=== PATIENT | male | born 2000 | race Caucasian/White ===

== ENCOUNTER 2020-08-12 11:26 | Emergency (ER) | payer OTHER ==
[~2020-08-12] VITALS: Ht 172.7 cm; Wt 87.1 kg
[2020-08-12 11:30] VITALS: BP 134/74
[2020-08-12] MEDS ORDERED: IBUPROFEN 600 MG TAB PO ONE (11:35)
[2020-08-12] MEDS ORDERED: LIDOCAINE 2% 1000 MG/50 ML VIAL INJ ONE ×2 (11:58→12:00)
[2020-08-12 12:51] VITALS: BP 134/74
== END 2020-08-12 12:52 | disposition home or self-care (01) ==
LOC: MED 11:26
DX: S62.397A Other fracture of fifth metacarpal bone, left hand, initial encounter for closed fracture (principal); W22.01XA Walked into wall, initial encounter; Y93.89 Activity, other specified; Y92.89 Other specified places as the place of occurrence of the external cause; Y99.8 Other external cause status
CPT/HCPCS: 26605; 73120; 73130; 99284; J2001

== ENCOUNTER 2021-02-02 17:30 | Emergency (ER) | payer OTHER ==
[~2021-02-02] VITALS: Ht 177.8 cm; Wt 81.6 kg
--- NOTE | 2021-02-02 17:30 | NUR ---
Note shanice in EDM - 02/02/21 at 1822 by MEDJJ 20 YEAR OLD MALE COMPLAINS OF RIGHT ARM PAIN X YESTERDAY. RADIAL PULSE +3, CAP REFILL <3 SEC. PT AOX4, BREATHING EVEN AND UNLABORED, SKIN WARM AND DRY. BED IN LOWEST POSITION, LOCKED, BED RAIL UPX1. PMH - DENIES ALLERGIES - NKA
[2021-02-02 17:35] VITALS: BP 129/70
--- NOTE | 2021-02-02 17:35 | NUR ---
PT TO AWAIT IN LOBBY
--- NOTE | 2021-02-02 18:05 | NUR ---
PT AMBULATED TO BED 08
--- NOTE | 2021-02-02 18:10 | NUR ---
20 YEAR OLD MALE COMPLAINS OF RIGHT ARM PAIN X YESTERDAY. PT AOX4, BREATHING EVEN AND UNLABORED, SKIN WARM AND DRY. BED IN LOWEST POSITION, LOCKED, BED RAIL UPX1. PMH - DENIES ALLERGIES - NKA
[2021-02-02 19:10] VITALS: BP 129/70
--- NOTE | 2021-02-02 19:10 | NUR ---
PATIENT LEFT WITHOUT BEING SEEN BY DR. MARTINEZ. NO FURTHER CARE PROVIDED FOR PATIENT.
--- NOTE | 2021-02-02 19:13 | NUR ---
REPORT GIVEN TO CALI VINES, TRANSFER OF CARE AT THIS TIME
[2021-02-02] MEDS ORDERED: CLIN300C2 PO (23:32)
== END 2021-02-02 19:10 | disposition left against medical advice (07) ==
LOC: MED 17:30
DX: M79.601 Pain in right arm (principal); Z53.21 Procedure and treatment not carried out due to patient leaving prior to being seen by health care provider

== ENCOUNTER 2021-02-02 21:31 | Emergency (ER) | payer OTHER ==
[~2021-02-02] VITALS: Ht 177.8 cm; Wt 81.6 kg
[2021-02-02 21:35] VITALS: BP 132/57
--- NOTE | 2021-02-02 21:38 | NUR ---
TO LOBBY A/W BED AMBULATORY
--- NOTE | 2021-02-02 22:19 | NUR ---
pt ambulated to bed 6
--- NOTE | 2021-02-02 22:30 | NUR ---
RECEIVED IN BED 6 WITH C/O RIGHT 3RD DIGIT PAIN SINCE YESTERDAY. PT WOKE UP THIS MORNING AND NOTED RED STREAK TRAVELING UP ARM RED STREAKS ARE NOTED RIGHT 3RD DIGIT RED AND SWOLLEN AND PT STATES HE BITES HIS NAILS
[2021-02-02] MEDS ORDERED: CLINDAMYCIN 600 MG/4 ML VIAL IM ONE (22:55)
[2021-02-02] MEDS ORDERED: CLINDAMYCIN 900 MG in DEXTROSE 5% 100 ML IV ONE (23:25)
[2021-02-02] MEDS ORDERED: CLIN300C2 PO (23:32)
[2021-02-03] MEDS ORDERED: CLINDAMYCIN 900 MG/6 ML VIAL IV ONE (00:01)
[2021-02-03 00:10] VITALS: BP 128/64
--- NOTE | 2021-02-03 00:20 | NUR ---
Patient discharged with v/s stable. Written and verbal after care instructions given and explained. Patient alert, oriented and verbalized understanding of instructions. Ambulatory with steady gait. All questions addressed prior to discharge. ID band removed. Patient advised to follow up with PMD. Rx of CLEOCIN given. Patient educated on indication of medication including possible reaction and side effects. Opportunity to ask questions provided and answered.
== END 2021-02-03 00:20 | disposition home or self-care (01) ==
LOC: MED 21:31
DX: L02.511 Cutaneous abscess of right hand (principal)
CPT/HCPCS: 36415; 87040; 90471; 90715; 96365; 99284; J3490

== ENCOUNTER 2021-02-07 15:58 | Inpatient (IN) | payer OTHER, SELFPAY ==
[~2021-02-07] VITALS: Ht 175.3 cm; Wt 78.5 kg
[~2021-02-07 15:58] MED LIST: CLIN300C2 PO
[2021-02-07 16:25] VITALS: BP 120/86
[2021-02-07] MEDS ORDERED: MORPHINE SULFATE 2 MG/ML SYR IVP ONE (16:30)
[2021-02-07] MEDS ORDERED: NACL 0.9% 1,000 ML IV ONE (16:30)
[2021-02-07] MEDS ORDERED: NACL 0.9% 2,000 ML IV ONE (16:30)
[2021-02-07] MEDS ORDERED: VANCOMYCIN 1,000 MG in DEXTROSE 5% 250 ML IV ONE (16:30)
[2021-02-07 18:06] LABS: BASOPHILS % (AUTO) 0.3 % (0.0-2.0); EOSINOPHILS # (AUTO) 0.1 K/uL (0-0.4); EOSINOPHILS % (AUTO) 0.8 % (0.0-4.0); HEMATOCRIT 42.5 % (36-52); HEMOGLOBIN 14.5 g/dL (12.0-18.0); LYMPHOCYTES # (AUTO) 1.4 K/uL (2.0-11.5); LYMPHOCYTES % (AUTO) 19.7 % (20.5-51.1); MEAN CORPUSCULAR HEMOGLOBIN 32 pg (27-31); MEAN CORPUSCULAR HGB CONC 34 g/dL (33-37); MEAN CORPUSCULAR VOLUME 94.5 fL (80-94); MONOCYTES # (AUTO) 0.5 K/uL (0.8-1.0); MONOCYTES % (AUTO) 7.4 % (1.7-9.3); NEUTROPHILS # (AUTO) 5.3 K/uL (1.8-7.7); NEUTROPHILS % (AUTO) 71.8 % (42.2-75.2); PLATELET COUNT (AUTO) 264 K/uL (140-450); RED CELL DISTRIBUTION WIDTH 12.9 % (11.6-13.7); WHITE BLOOD COUNT (AUTO) 7.3 K/uL (4.8-10.8)
[2021-02-07] MEDS ORDERED: cefTRIAXone 1,000 MG VIAL ONE (18:07)
[2021-02-07] MEDS ORDERED: MORPHINE SULFATE 2 MG/ML SYR ONE (18:07)
[2021-02-07 18:22] LABS: ANION GAP 11.3 (8-16); CARBON DIOXIDE 29.2 mmol/L (21-32); CHLORIDE 103 mmol/L (98-107); CREATININE 0.9 mg/dL (0.6-1.3); GFR ARICAN-AMERICAN 136 mL/min (>90); GLUCOSE 106 mg/dL (74-106); POTASSIUM 3.5 mmol/L (3.5-5.1); SODIUM SERUM 140 mmol/L (136-145); UREA NITROGEN, BLOOD 9 mg/dL (7-18)
--- NOTE | 2021-02-07 18:22 | NUR ---
20/M presents to ED with c/o cellulitis. Patient states he had a cut on his 3rd digit on right hand from "biting his nails" stating site was infected and he was seen here on 02/01/21 and given a tetanus. Patient states he experienced some relief with Rx antibiotics he was sent home with but noticed site began to began red and swollen two days ago, stating the pain is radiating up his left arm. 3rd digit on right hand is red, swollen, warm to touch, site is tender. Patient describes it as a intermittnet 01/27 pain, denies taking anything at home for pain.
[2021-02-07 18:30] LABS: ALBUMIN 3.9 g/dL (3.4-5.0); ASPARTATE AMINOTRANSFERASE 46 U/L (15-37); TOTAL BILIRUBIN 0.9 mg/dL (0.0-1.0)
[2021-02-07] MEDS ORDERED: VANCOMYCIN 1,000 MG VIAL ONE (18:33)
[2021-02-07 18:45] LABS: BARBITURATE, URINE NEGATIVE ng/ml (NEG <=200); BENZODIAZEPINE, URINE NEGATIVE ng/mL (NEG <=200); CANNABINOID, URINE POSITIVE ng/mL (NEG <=50); COCAINE, URINE NEGATIVE ng/mL (NEG <=300); OPIATE, URINE NEGATIVE ng/mL (NEG <=2000); PHENCYCLIDINE SCREEN,URINE NEGATIVE ng/mL (NEG <=25)
--- NOTE | 2021-02-07 20:23 | NUR ---
LATASHA BEE COLLECTED
[2021-02-07] MEDS ORDERED: ONDANSETRON 4 MG/2 ML VIAL IVP PRN (20:35)
[2021-02-07] MEDS ORDERED: ACETAMINOPHEN 325 MG TAB PO PRN (20:35)
[2021-02-07] MEDS ORDERED: POTASSIUM CHLORIDE 10 MEQ TABER PO PRN (20:35)
[2021-02-07] MEDS ORDERED: MAG SULF 2000 MG/WATER PREMIX 50 ML IV PRN (20:35)
[2021-02-07] MEDS ORDERED: HYDROcodone/APAP 5/325 MG 1 TAB TAB PO PRN (20:35)
[2021-02-07] MEDS ORDERED: MORPHINE SULFATE 4 MG/ML SYR IVP PRN (20:35)
[2021-02-07] MEDS ORDERED: MAGNESIUM OXIDE 400 MG TAB PO PRN (20:35)
[2021-02-07] MEDS ORDERED: KCL 20 MEQ/WATER INJ PREMIX 200 ML IV PRN (20:35)
[2021-02-07] MEDS ORDERED: VANCOMYCIN PER PHARMACY MC PRN (20:35)
--- NOTE | 2021-02-07 21:00 | NUR ---
RESTING QUIETLY. RIGHT ARM A LITTLE UNCOMFORTABLE, RIGHT 3RD DIGIT RED AND SWOLLEN WITH REDNESS TRAVELING UP RIGHT ARM. PT WAS SEEN HERE FOR THE SAME LAST WEEK AND STATES IT WAS GETTING BETTER AND WHEN HE WOKE UP THIS MORNING HIS MIDDLE FINGER WAS RED AND SWOLLEN AND THE REDNESS WENT UP HIS RIGHT ARM.
--- NOTE | 2021-02-07 21:02 | NUR ---
Patient will be admitted to care of DR. ESPAÑA . Admited to [facility]. Will go to [id number] list completed. Report to SHANTE VINES
--- NOTE | 2021-02-07 21:17 | NUR ---
REPORT GIVEN TO SHANTE VINES.
--- NOTE | 2021-02-07 21:18 | NUR ---
RECEIVED PHONE REPORT FROM ER NURSE. WAITING PT TO TRANSFER TO UNIT.
[2021-02-07 21:30] VITALS: BP 116/61
--- NOTE | 2021-02-07 21:30 | NUR ---
PATIENT TRANSFER TO UNIT BY WHEELCHAIR, AMBULATE WITH STEADY GAIT INDEPENDENTLY TO BED. CC RIGHT MIDDLE FINGER PAIN AND SWOLLEN. DX CELLULITIS. A/A/O X4. RESPIRATORY EVEN AND UNLABORED, ON ROOM AIR, LUNG SOUND CLEAR TO AUSCULTATE. ABDOMEN SOFT, NON TENDER, NON DISTENDED. BOWEL SOUND ACTIVE TO 4 QUADRANTS. SKIN WARM, DRY, NON DIAPHORETIC. RIGHT MIDDLE FINGER REDNESS, SWOLLEN, TENDERNESS, WARM TO TOUCH, NO OPEN WOUND NOTED. IV ON LEFT FA 20G, INTACT AND PATENT. PATIENT COMPLAINS PAIN 5/10 ON RIGHT MIDDLE FINGER, PAIN TOLERABLE. ABLE TO MAKE NEED KNOW. PLAN OF CARE DISCUSSED, PATIENT VERBALIZED UNDERSTANDING. MRSA SWAB COLLECTED. ORIENT TO ROOM AND UNIT. CALL LIGHT WITHIN REACH. WILL CONTINUE TO MONITOR.
--- NOTE | 2021-02-07 22:00 | NUR ---
ROUND CHECK. PATIENT IS USING PHONE, NO SIGN OF DISTRESS NOTED. CALL LIGHT WITHIN REACH. WILL CONTINUE TO MONITOR.
--- NOTE | 2021-02-08 | NUR ---
ROUND CHECK. PATIENT IS SLEEPING, CHEST RISE AND FALL, NO SIGN OF RESPIRATORY DISTRESS NOTED. CALL LIGHT WITHIN REACH. WILL CONTINUE TO MONITOR.
[2021-02-08] MEDS ORDERED: VANCOMYCIN 1GM/DEXT 5% PREMIX 200 ML IV SCH (00:30)
[2021-02-08] MEDS: NACL 0.9% 1,000 ML IV SCH ×2 (01:03→09:46)
[2021-02-08] MEDS ORDERED: VANCOMYCIN 1,000 MG VIAL ONE (01:07)
--- NOTE | 2021-02-08 01:19 | NUR ---
SCHEDULE MEDICATION GIVEN WITH EDUCATION, PATIENT VERBALIZED UNDERSTANDING. NO SIGN OF DISTRESS NOTED. CALL LIGHT WITHIN REACH. WILL CONTINUE TO MONITOR.
[2021-02-08 04:00] VITALS: BP 101/64
--- NOTE | 2021-02-08 04:00 | NUR ---
PATIENT IS SLEEPING, CHEST RISE AND FALL, AROUSABLE TO VOICE. NO SIGN OF DISTRESS NOTED. CALL LIGHT WITHIN REACH. WILL CONTINUE TO MONITOR.
--- NOTE | 2021-02-08 06:49 | NUR ---
PATIENT IS AWAKE, RESTING IN BED. PATIENT REFUSED BLOOD DRAWN, EDUCATION GIVEN, PATIENT STILL REFUSED. WILL TRY AGAIN DURING DAY SHIFT.
--- NOTE | 2021-02-08 07:10 | NUR ---
ENDORSED PATIENT TO AM NURSE FOR CONTINUITY OF CARE. PATIENT IS STABLE.
--- NOTE | 2021-02-08 07:20 | NUR ---
RECEIVE REPORT FROM MACHINE HEEL SPRAYER NURSE FOR CONTINUITY OF CARE. PATIENT SLEEPING IN BED. BREATHING EVEN AND UNLABORED. ALL SAFETY MEASURES IN PLACE. WILL CONTINUE TO MONITOR.
--- NOTE | 2021-02-08 09:00 | NUR ---
PATIENT HAS BEEN SCREENED AND CATEGORIZED LOW NUTRITION RISK. PATIENT WILL BE SEEN WITHIN 7 DAYS OF ADMISSION. 02/14/[address]
--- NOTE | 2021-02-08 09:16 | NUR ---
PATIENT AWAKE IN BED. BREATHING IS EVEN AND UNLABORED. ALL SAFETY MEASURES IN PLACE. WILL CONTINUE TO MONITOR.
[2021-02-08] MEDS: DOCUSATE SODIUM 100 MG GELCAP PO SCH (09:46)
[2021-02-08] MEDS: VANCOMYCIN 1,000 MG in DEXTROSE 5% 250 ML IV SCH ×2 (09:48→18:54)
[2021-02-08] MEDS: IBUPROFEN 400 MG TAB PO SCH ×2 (12:10→18:54)
--- NOTE | 2021-02-08 12:13 | NUR ---
PATIENT AWAKE IN BED. BREATHING IS EVEN AND UNLABORED. GIRLFRIEND AT BEDSIDE. ALL SAFETY MEASURES IN PLACE. WILL CONTINUE TO MONITOR.
[2021-02-08 14:10] LABS: BASOPHILS % (AUTO) 0.4 % (0.0-2.0); EOSINOPHILS # (AUTO) 0.1 K/uL (0-0.4); EOSINOPHILS % (AUTO) 1.7 % (0.0-4.0); HEMATOCRIT 37.1 % (36-52); HEMOGLOBIN 12.7 g/dL (12.0-18.0); LYMPHOCYTES # (AUTO) 1.7 K/uL (2.0-11.5); LYMPHOCYTES % (AUTO) 23.6 % (20.5-51.1); MEAN CORPUSCULAR HEMOGLOBIN 32 pg (27-31); MEAN CORPUSCULAR HGB CONC 34 g/dL (33-37); MEAN CORPUSCULAR VOLUME 94.4 fL (80-94); MONOCYTES # (AUTO) 0.5 K/uL (0.8-1.0); MONOCYTES % (AUTO) 6.5 % (1.7-9.3); NEUTROPHILS # (AUTO) 4.9 K/uL (1.8-7.7); NEUTROPHILS % (AUTO) 67.8 % (42.2-75.2); PLATELET COUNT (AUTO) 219 K/uL (140-450); RED BLOOD CELL COUNT(AUTO) 3.93 MIL/uL (4.20-6.10); RED CELL DISTRIBUTION WIDTH 13.1 % (11.6-13.7); WHITE BLOOD COUNT (AUTO) 7.3 K/uL (4.8-10.8)
--- NOTE | 2021-02-08 14:19 | NUR ---
PATIENT AWAKE IN BED. NO ACUTE DISTRESS NOTED. ALL SAFETY MEASURES IN PLACE. WILL CONTINUE TO MONITOR.
[2021-02-08 14:25] LABS: ALBUMIN 3.4 g/dL (3.4-5.0); ANION GAP 10.6 (8-16); CARBON DIOXIDE 26.9 mmol/L (21-32); CHOL/HDL RATIO 2.4 (1-4.5); CREATININE 0.8 mg/dL (0.6-1.3); POTASSIUM 3.5 mmol/L (3.5-5.1); TOTAL BILIRUBIN 0.4 mg/dL (0.0-1.0)
--- NOTE | 2021-02-08 15:33 | NUR ---
DC PL[age] YRS OLD MALE PATIENT WAS ADMITTED FROM HOME WITH A DX OF CELLULITIS. LEFT 5TH METACARPAL FRACTURE PATIENT HAS NO MEDICAL HISTORY.ADMINISTERED IV ABX VANCOMYCIN AND ROCEPHIN. POSSIBLE DISCHARGE TOMORROW ON PO ANTIBIOTICS. CM TO FOLLOW
--- NOTE | 2021-02-08 17:46 | NUR ---
PATIENT AWAKE IN BED. BREATHING IS EVEN AND UNLABORED. PATIENT DENIES PAIN AT THIS TIME. GIRLFRIEND AT BEDSIDE.ALL SAFETY MEASURES IN PLACE. WILL CONTINUE TO MONITOR.
--- NOTE | 2021-02-08 19:15 | NUR ---
RECEIVED PATIENT FROM AM NURSE FOR CONTINUITY OF CARE. PATIENT A/A/O X4. RESPIRATORY EVEN AND UNLABORED, ON ROOM AIR, NO SIGN OF DISTRESS NOTED. SKIN WARM, DRY, NON DIAPHORETIC. RIGHT MIDDLE FINGER REDNESS AND SWOLLEN, WARM TO TOUCH, NO DISCHARGE OR DRAINAGE. IV ON LEFT FA 20G, INTACT AND PATENT, IS INFUSING FLUID ORDER. DENIES ANY PAIN OR DISCOMFORT AT THIS TIME. ABLE TO MAKE NEEDS KNOWN. PLAN OF CARE DISCUSSED, PATIENT VERBALIZED UNDERSTANDING. CALL LIGHT WITHIN REACH. WILL CONTINUE TO MONITOR.
--- NOTE | 2021-02-08 19:15 | NUR ---
ENDORSED TO MEDICAL EXAMINER NURSE FOR CONTINUITY OF CARE. PATIENT STABLE. ALL SAFETY MEASURE IN PLACE.
[2021-02-08 20:00] VITALS: BP 111/45
--- NOTE | 2021-02-08 20:00 | NUR ---
ROUND CHECK. PATIENT IS AWAKE, RESTING IN BED, FAMILY AT BEDSIDE. NO SIGN OF DISTRESS NOTED. CALL LIGHT WITHIN REACH. WILL CONTINUE TO MONITOR.
--- NOTE | 2021-02-08 22:00 | NUR ---
ROUND CHECK. PATIENT IS SLEEPY, AROUSABLE TO VOICE. NO SIGN OF DISTRESS NOTED. CALL LIGHT WITHIN REACH. WILL CONTINUE TO MONITOR.
--- NOTE | 2021-02-09 | NUR ---
ROUND CHECK. PATIENT IS SLEEPING, CHEST RISE AND FALL, NO SIGN OF RESPIRATORY DISTRESS. CALL LIGHT WITHIN REACH. WILL CONTINUE TO MONITOR.
[2021-02-09] MEDS: VANCOMYCIN 1,000 MG in DEXTROSE 5% 250 ML IV SCH ×2 (01:17→09:42)
--- NOTE | 2021-02-09 01:17 | NUR ---
SCHEDULE MEDICATION GIVEN WITH EDUCATION. PATIENT VERBALIZED UNDERSTANDING. NO SIGN OF DISTRESS NOTED. CALL LIGHT WITHIN REACH. WILL CONTINUE TO MONITOR.
--- NOTE | 2021-02-09 02:00 | NUR ---
PATIENT IS AWAKE, USING HIS CELL PHONE, NO SING OF DISTRESS NOTED. CALL LIGHT WITHIN REACH. WILL CONTINUE TO MONITOR.
[2021-02-09 04:00] VITALS: BP 111/63
--- NOTE | 2021-02-09 04:00 | NUR ---
PATIENT IS SLEEPING, CHEST RISE AND FALL, NO SIGN OF RESPIRATORY DISTRESS NOTED. CALL LIGHT WITHIN REACH. WILL CONTINUE TO MONITOR.
--- NOTE | 2021-02-09 06:00 | NUR ---
PATIENT IS SLEEPING, CHEST RISE AND FALL, NO SIGN OF DISTRESS NOTED. CALL LIGHT WITHIN REACH. WILL CONTINUE TO MONITOR.
--- NOTE | 2021-02-09 07:39 | NUR ---
ENDORSED PATIENT TO AM NURSE FOR CONTINUITY OF CARE. PATIENT IS STABLE.
--- NOTE | 2021-02-09 07:42 | NUR ---
RECEIVED REPORT FROM ROBOTICS APPLICATION ENGINEER RN FOR CONTINUITY OF CARE. PT IS AWAKE. A & O X4. PT IS IN LOW FOWLERS, IN RESTING POSITION. RESPIRATIONS ARE EVEN AND UNLABORED WITH NO SIGNS OF DISTRESS. SKIN IS WARM AND DRY. IV SITE AT LFA 20G. CLEAN, DRY AND INTACT. IVF INFUSING WELL. PT COMPLAINS OF BLISTER ON RIGHT MIDDLE FINGER BUT DENIES PAIN. WILL FOLLOW UP WITH DOCTOR. PLAN OF CARE DISCUSSED. SAFETY PRECAUTIONS IN PLACE. WILL CONTINUE TO MONITOR.
[2021-02-09 08:00] VITALS: BP 114/53
[2021-02-09 08:10] LABS: BASOPHILS % (AUTO) 0.6 % (0.0-2.0); EOSINOPHILS # (AUTO) 0.1 K/uL (0-0.4); EOSINOPHILS % (AUTO) 2.5 % (0.0-4.0); HEMATOCRIT 41.2 % (36-52); LYMPHOCYTES # (AUTO) 1.4 K/uL (2.0-11.5); LYMPHOCYTES % (AUTO) 31.2 % (20.5-51.1); MEAN CORPUSCULAR HEMOGLOBIN 33 pg (27-31); MEAN CORPUSCULAR HGB CONC 34 g/dL (33-37); MEAN CORPUSCULAR VOLUME 95.4 fL (80-94); MONOCYTES # (AUTO) 0.3 K/uL (0.8-1.0); MONOCYTES % (AUTO) 6.9 % (1.7-9.3); NEUTROPHILS # (AUTO) 2.7 K/uL (1.8-7.7); NEUTROPHILS % (AUTO) 58.8 % (42.2-75.2); PLATELET COUNT (AUTO) 251 K/uL (140-450); RED BLOOD CELL COUNT(AUTO) 4.32 MIL/uL (4.20-6.10); RED CELL DISTRIBUTION WIDTH 13.3 % (11.6-13.7); WHITE BLOOD COUNT (AUTO) 4.6 K/uL (4.8-10.8)
[2021-02-09] MEDS: IBUPROFEN 400 MG TAB PO SCH ×2 (08:35→11:54)
[2021-02-09] MEDS: DOCUSATE SODIUM 100 MG GELCAP PO SCH (08:35)
[2021-02-09 09:13] LABS: ALBUMIN 3.2 g/dL (3.4-5.0); ANION GAP 15.5 (8-16); CARBON DIOXIDE 26.4 mmol/L (21-32); CREATININE 0.8 mg/dL (0.6-1.3); MAGNESIUM 1.8 mg/dL (1.8-2.4); POTASSIUM 3.9 mmol/L (3.5-5.1); TOTAL BILIRUBIN 0.3 mg/dL (0.0-1.0)
--- NOTE | 2021-02-09 10:00 | NUR ---
ADMINISTERED ALL SCHEDULED MEDICATIONS. PT DOES NOT COMPLAIN OF ANY PAIN AT THIS TIME. WILL CONTINUE TO MONITOR.
--- NOTE | 2021-02-09 12:00 | NUR ---
PT IS AWAKE AND STABLE. ADMINISTERED ALL SCHEDULED MEDICATIONS. WILL CONTINUE TO MONITOR.
[2021-02-09] MEDS ORDERED: fentaNYL citrate 0.05 MG/ML VIAL ONE (15:42)
--- NOTE | 2021-02-09 15:50 | NUR ---
WAS NOTIFIED BY OR NURSE THAT PATIENT IS REFUSING THE PROCEDURE THAT DR. ALFREDO IS PLANNING. SPOKE TO THE PATIENT AND PATIENT STATED THAT HE WOULD LIKE TO SIGN AMA AND FIND ANOTHER [email or web address] TO DO THE PROCEDURE. EXPLAINED THE RISK AND BENEFITS OF SIGNING AMA AND PATIENT STILL REQUESTED TO SIGN THE FORM. NOTIFIED DR. ALFREDO REGARDING PATIENT'S REFUSAL AND IS AWARE.
--- NOTE | 2021-02-09 16:15 | NUR ---
PATIENT SIGNED AMA FORM. DR. ALFREDO IS AWARE HE SIGNED AMA FOR. IV AND ID BAND REMOVED. PT LEFT THE UNIT STABLE.
== END 2021-02-09 16:15 | disposition left against medical advice (07) | DRG 383 ==
LOC: MED 15:58 → MTU 20:41
PROVIDERS: ADMIT Hospitalist; ATTEND Hospitalist
DX: L03.012 Cellulitis of left finger (principal); Z20.822 Contact with and (suspected) exposure to COVID-19; Z53.29 Procedure and treatment not carried out because of patient's decision for other reasons
CPT/HCPCS: 36415; 80053; 80202; 80305; 83605; 83735; 84484; 85025; 87040; 87081; 96365; 96367; 96375; 99285; G0482; J0696; J2270; J3010; J3370; J7030; J7060

== ENCOUNTER 2023-12-01 02:50 | Emergency (ER) | payer OTHER ==
[~2023-12-01] VITALS: Ht 172.7 cm; Wt 73.5 kg
[2023-12-01 02:57] VITALS: BP 115/71; PULSE 82; RESP 20; TEMP 97.8; O2SAT 100
[2023-12-01] MEDS: buprenorphine HCL 2 MG sublingual tab SL ONE ×3 (03:23→06:05)
[2023-12-01] MEDS: NACL 0.9% 1,000 ML IV ONE (05:21)
[2023-12-01] MEDS: ONDANSETRON 4 MG/2 ML VIAL IVP ONE (05:21)
[2023-12-01] MEDS: LORazepam 2 MG/ML VIAL IVP ONE (05:22)
[2023-12-01 05:30] LABS: BASOPHILS % (AUTO) 0.4 % (0.0-2.0); EOSINOPHILS % (AUTO) 0.2 % (0.0-4.0); HEMOGLOBIN 15.2 g/dL (12.0-18.0); LYMPHOCYTES # (AUTO) 1.3 K/uL (2.0-11.5); LYMPHOCYTES % (AUTO) 23.5 % (20.5-51.1); MEAN CORPUSCULAR HEMOGLOBIN 31 pg (27-31); MEAN CORPUSCULAR HGB CONC 35 g/dL (33-37); MONOCYTES # (AUTO) 0.3 K/uL (0.8-1.0); MONOCYTES % (AUTO) 5.7 % (1.7-9.3); NEUTROPHILS % (AUTO) 70.2 % (42.2-75.2); PLATELET COUNT (AUTO) 299 K/uL (140-450); RED BLOOD CELL COUNT(AUTO) 4.89 MIL/uL (4.20-6.10); RED CELL DISTRIBUTION WIDTH 13.4 % (11.6-13.7); WHITE BLOOD COUNT (AUTO) 5.7 K/uL (4.8-10.8)
[2023-12-01 05:47] LABS: ANION GAP 22.1 (8-16); CALCIUM 9.7 mg/dL (8.5-10.1); CARBON DIOXIDE 20.1 mmol/L (21-32); POTASSIUM 3.2 mmol/L (3.5-5.1)
[2023-12-01] MEDS ORDERED: BUPR1FIL2 SL (05:51)
[2023-12-01 06:10] LABS: ALBUMIN 4.8 g/dL (3.4-5.0); BILIRUBIN,DIRECT 0.2 mg/dL (0.0-0.3); TOTAL BILIRUBIN 1.3 mg/dL (0.0-1.0); TOTAL PROTEIN, SERUM 7.8 g/dL (6.4-8.2)
[2023-12-01 06:46] VITALS: TEMP 98
[2023-12-01 07:31] VITALS: RESP 20; O2SAT 98
[2023-12-01 08:06] VITALS: BP 111/68; PULSE 80
[2023-12-01 08:11] LABS: CANNABINOID, URINE POSITIVE ng/mL (NEG <=50)
[2023-12-01 08:12] LABS: AMPHETAMINE, URINE POSITIVE ng/ml (NEG <=1000); BARBITURATE, URINE NEGATIVE ng/ml (NEG <=200); BENZODIAZEPINE, URINE NEGATIVE ng/mL (NEG <=200); COCAINE, URINE NEGATIVE ng/mL (NEG <=300); OPIATE, URINE NEGATIVE ng/mL (NEG <=2000); PHENCYCLIDINE SCREEN,URINE NEGATIVE ng/mL (NEG <=25)
== END 2023-12-01 08:06 | disposition home or self-care (01) ==
LOC: MED 02:50
DX: F11.13 Opioid abuse with withdrawal (principal); F11.10 Opioid abuse, uncomplicated; R03.0 Elevated blood-pressure reading, without diagnosis of hypertension; Z79.899 Other long term (current) drug therapy
CPT/HCPCS: 36415; 80048; 80076; 80305; 82550; 83690; 85025; 96361; 96374; 96375; 99284; J2060; J2405; J7030